=== PATIENT | female | born 1960 | race Caucasian/White ===

== ENCOUNTER 2017-03-06 20:03 | Emergency (ER) | payer OTHER ==
[~2017-03-06] VITALS: Ht 162.6 cm; Wt 88.9 kg
[2017-03-06 22:45] VITALS: BP 128/76
--- NOTE | 2017-03-06 23:36 | ED SKIN/ALLERGY COMPLAINT ---
History of Present Illness General Chief Complaint: Allergy Symptoms Stated Complaint: L FOOT ?ALLERGIC RXN VS INSECT BITE PER PT Source: patient Exam Limitations: no limitations Vital Signs & Intake/Output Vital Signs & Intake/Output Vital Signs Date Time Temp Pulse Resp B/P B/P Pulse O2 O2 Flow FiO2 Mean Ox Delivery Rate 03/06 2245 98.7 74 18 128/76 03/06 2025 98.4 96 18 128/80 96 Room Air Allergies Coded Allergies: Penicillins (Severe, SWELLING 03/06/17) Sulfa (Sulfonamide Antibiotics) (Severe, HIVES, BODY SWELLING 03/06/17) ibuprofen (Severe, BODY SWELLING 03/06/17) Uncoded Allergies: ANESTHETHICS (Severe, ANAPHYLACTIC 03/06/17) Reconcile Medications Methylprednisolone. (Medrol) 4 MG TAB.DS.PK 1 DP PO AD poison soniya 6 on day 1 then reduce by one tablet daily until gone Triage Note: PT TO TRIAGE WITH C/O SWELLING TO LEFT TOES AND TINGLING/NUMBNESS, REDNESS TRAVELING UP TO ANKLE STARTED 1 HR AGO. NO OTHER COMPLAINTS. VSS. Triage Nurses Notes Reviewed? yes HPI: Patient presents for evaluation of a possible allergic reaction that began at about 7:30 this afternoon after landscaping at friend's house for a good majority of the day. Patient states that she initially felt a burning sensation and then went to take a shower. She noticed some redness and swelling of the left foot and ankle. Since then symptoms and now spread to both of the upper arms and face. She is experiencing some itching discomfort in these areas as well. She tried an [id number] poison soniya preparation without much improvement. Past History Travel History Traveled to [place] past 21 day No Medical History Any Pertinent Medical History? see below for history Gastrointestinal: SPASTIC COLON Endocrine: hypothyroidism Surgical History Surgical History: non-contributory Psychosocial History What is your primary language Turkmen Tobacco Use: Never used Family History Hx Contributory? No Review of Systems Review of Systems Constitutional: Reports: no symptoms. EENTM: Reports: no symptoms. Respiratory: Reports: no symptoms. Cardiovascular: Reports: no symptoms. GI: Reports: no symptoms. Genitourinary: Reports: no symptoms. Musculoskeletal: Reports: no symptoms. Skin: Reports: see HPI. Neurological/Psychological: Reports: no symptoms. Hematologic/Endocrine: Reports: no symptoms. Immunologic/Allergic: Reports: no symptoms. All Other Systems: Reviewed and Negative Physical Exam Physical Exam General Appearance: see below Comments: Gen.: Well-nourished, well-developed, no acute respiratory distress. Head: Normocephalic, atraumatic. Eyes: Normal inspection bilaterally Ears: Normal inspection bilaterally Nose: Normal inspection, nasal cannula in place Throat/mouth : Moist mucosa Neck: Supple, full range of motion, no goiter Heart: Regular rate and rhythm Lungs: Quiet respirations Back: Normal range of motion Extremities: Normal range of motion grossly. See skin exam Neurologic: Cranial nerves grossly intact, speech is clear Skin: warm and dry, erythema and macular rash in patches over the left foot left upper extremities and very faintly over the left face with swelling of the left ankle. Psychiatric: Calm, cooperative, no apparent delusions or hallucinations Progress Differential Diagnosis: cellulitis, necrotizing fasciitis, poison plant dermatitis, allergic reaction Plan of Care: Medrol Departure Departure Disposition: HOME OR SELF CARE Condition: Stable Clinical Impression Primary Impression: Poison soniya dermatitis Referrals: RUBY RAYMUNDO MD (PCP/Family) Additional Instructions: Medrol Dosepak as prescribed. Benadryl as needed for itch. Follow up with your primary care doctor in 72 hours if not improving. Return if any concerns or sudden worsening. Thank you for choosing the [facility] for your care. It was a pleasure to serve you today. Colton Mitchell M.D. [facility] Departure Forms: Customer Survey General Discharge Information Prescriptions: Current Visit Scripts Methylprednisolone. (Medrol) 1 DP PO AD #1 DP 6 on day 1 then reduce by one tablet daily until gone
[2017-03-06] MEDS ORDERED: MEDROL4 M2 PO (23:40)
== END 2017-03-06 23:52 ==
LOC: ERH 20:03
DX: L23.7 Allergic contact dermatitis due to plants, except food (principal)